=== PATIENT | female | born 1975 | race Caucasian/White ===

== ENCOUNTER 2022-07-04 17:13 | Emergency (ER) | payer OTHER, SELFPAY ==
[2022-07-04 17:29] VITALS: BP 146/98; PULSE 130; RESP 18; TEMP 38.2; O2SAT 100
--- NOTE | 2022-07-04 17:29 | ED.URI ---
HPI - URI/Sore Throat General Chief Complaint: Upper Respiratory Infection Stated Complaint: sinus pressure/drainage; ear pain Time Seen by Provider: 07/04/22 17:38 Source: patient Mode of arrival: ambulatory Limitations: no limitations History of Present Illness HPI Narrative: 46-year-old female presents with complaint of sinus congestion for over a week. Reports pressure, nasal congestion bilateral ear pain. Today began having clear drainage from bilateral eyes and fever. Taking Mucinex, Sudafed, Flonase. reports coughing at night. Denies nausea vomiting diarrhea. No chest pain or shortness of breath. All systems reviewed and negative except as noted above. Related Data Allergies Allergy/AdvReac Type Severity Reaction Status Date / Time codeine Allergy Unknown Other Verified 07/04/22 17:29 Review of Systems Review of Systems: CONSTITUTIONAL: reports fever, chills, or sweats. EYES: Denies visual changes, redness, or discharge. ENT: Report rhinorrhea, congestion, sore throat, or otalgia. CARDIOVASCULAR: Denies chest pain, palpitations, or edema. RESPIRATORY: reports cough. Denies dyspnea. GASTROINTESTINAL: Denies abdominal pain, nausea, vomiting, or diarrhea. GENITOURINARY: Denies dysuria or hematuria. SKIN: Denies rash or itching. MUSCULOSKELETAL: Denies back pain, joint pain, or myalgia. NEUROLOGIC: Denies headache, numbness, or weakness. PSYCHIATRIC: Denies anxiety or depression. All other systems reviewed are negative, except as documented in HPI. PMFSH Comments At time of signature, agree with nursing past medical, surgical, social and family history. There is no relevant family history pertinent to the presenting complaint. Exam Narrative: GENERAL: This is a well-nourished, well-developed patient, in no apparent distress. HEAD: normocephalic, atraumatic. EYES: PERRL. Sclera clear/white. Vision is grossly intact. Clear drainage from both eyes without erythema. EARS: External ears normal, auditory canals clear and without drainage, fluid to bilateral TMs, retracted, dull light reflex. NOSE: External nose normal with erythema to both nares with moderate congestion, bilateral sinus tenderness maxillary and frontal. THROAT: Mucous membranes moist, posterior pharynx clear. NECK: Neck supple, non-tender without lymphadenopathy, masses or thyromegaly. CARDIOVASCULAR: Regular rate and rhythm without murmurs, gallops, or rubs. RESPIRATORY: Clear to auscultation. Breath sounds equal bilaterally. No wheezes, rales, or rhonchi. SKIN: warm, Dry, intact with no suspicious lesions or rash, good texture and turgor. NEURO: awake, alert, and oriented to person, place and time. There were no obvious focal neurologic abnormalities. EXTREMITIES: No joint tenderness, effusion, or edema noted. Course Course Level of Care: Express Care Visit Vital Signs Vital signs: Vital Signs Temperature 38.2 C H 07/04/22 17:29 Pulse Rate 130 H 07/04/22 17:29 Respiratory Rate 18 07/04/22 17:29 Blood Pressure 146/98 H 07/04/22 17:29 Pulse Oximetry 100 07/04/22 17:29 Oxygen Delivery Room Air 07/04/22 17:29 Temperature 38.2 C H 07/04/22 17:30 Pulse Rate 130 H 07/04/22 17:30 Respiratory Rate 18 07/04/22 17:30 Blood Pressure 146/98 H 07/04/22 17:30 Pulse Oximetry 100 07/04/22 17:30 Oxygen Delivery Room Air 07/04/22 17:30 Reviewed MDM - URI/Sore Throat MDM Narrative Medical decision making narrative: Patient is aware of diagnosis, understands and agrees to treatment plan. Anticipatory guidance given. Patient agrees to follow-up as directed and is aware of reasons to seek care at the emergency department. Portions of this record may have been created with voice recognition software Discharge Plan Discharge Clinical Impression: Acute bacterial sinusitis Patient Disposition: Home, Self-Care Condition: Stable Instructions: Antibiotic Form, Sinusitis (ED) Additional Instruc
[2022-07-04 17:30] VITALS: BP 146/98; PULSE 130; RESP 18; TEMP 38.2; O2SAT 100
== END 2022-07-04 18:12 | disposition home or self-care (01) ==
PROVIDERS: Emergency Provider Nurse Practitioner Family
DX: J01.90 Acute sinusitis, unspecified (principal)
CPT/HCPCS: 99213; G0463

== ENCOUNTER 2022-11-20 16:22 | Outpatient (CLI) | payer OTHER, SELFPAY ==
--- NOTE | ~2022-11-20 | MM_ITS ---
EXAMINATION: MM screening glen BI w jadon HISTORY: Screening mammogram TECHNIQUE: Craniocaudal and mediolateral oblique 3-D tomosynthesis images were obtained and synthetic 2-D images were generated. CAD analysis was submitted and interpreted. COMPARISON: 05/31/2017 bilateral diagnostic mammogram 2016 bilateral screening mammogram BREAST PARENCHYMAL COMPOSITION: There are scattered areas of fibroglandular density. FINDINGS: There is no evidence of suspicious mass, calcification, or architectural distortion to sugg est malignancy in either breast. There has been no suspicious interval change. IMPRESSION: 1. No mammographic evidence of malignancy. 2. Recommend routine screening mammography in one year. BI-RADS Category 1: Negative Reviewed, dictated and finalized at location A.
== END 2022-11-20 16:23 | disposition home or self-care (01) ==
PROVIDERS: PCP Family Medicine; Visit Provider Physician Assistant Medical
DX: Z12.31 Encounter for screening mammogram for malignant neoplasm of breast (principal)
CPT/HCPCS: 77063; 77067

== ENCOUNTER 2023-07-11 09:26 | Emergency (ER) | payer OTHER, SELFPAY ==
--- NOTE | 2023-07-11 09:29 | ED.URI ---
HPI - URI/Sore Throat General Chief Complaint: Upper Respiratory Infection Stated Complaint: Sore Throat,Bilateral Ear Irritation Time Seen by Provider: 07/11/23 09:29 Source: patient Mode of arrival: ambulatory Limitations: no limitations History of Present Illness HPI Narrative: Lin is a 47-year-old female patient presenting to the clinic today with complaints of sore throat, itchy watery eyes, cough, nasal congestion, and bilateral ear pain x4 days. She reports no fever or chills. Denies any shortness of breath or chest pain. No known exposure to anyone with COVID, flu, or strep. Just brought in a [employer] prior to symptoms onset. MD elicited complaint: cough, sore throat, nasal congestion and other (Itchy watery eyes) Related Data Allergies Allergy/AdvReac Type Severity Reaction Status Date / Time codeine AdvReac Unknown Gastrointestinal Verified 09/14/22 10:09 Upset sumatriptan [From Imitrex] AdvReac Upper Verified 09/14/22 10:46 extremity heaviness/paresthesia Review of Systems Review of Systems: Pertinent positives per HPI. Patient denies any fever, chills, rash, headache, visual changes, dizziness, shortness of breath, chest pain, palpitations, nausea, vomiting, diarrhea, constipation, abdominal pain, or any urinary issues. [facility] Past Medical History Medical History Anxiety Hx of migraines Surgical History Surgical History Delivery by section Hx of cholecystectomy Family History Family History Father Lung cancer Mother Diabetes mellitus Hypertension Social History Social History Smoking status: Never smoker Alcohol intake: current Drinks per week: 4 Substance use: never Substance use type: does not use Lack of Transportation: No Lack of Food: Never True Current Housing: I Have Housing Concerned About Future Housing: No Difficulty Paying Gas/Electric Bills: No Difficulty Paying for Meds: No Currently Unemployed: No Difficulty w/ Childcare or Family Care: No Living arrangements: with family Occupation/Education: occupation Gender identity (if verbalized by the patient): Female Comments At the time of my signature, I reviewed and agree with the nursing past medical, surgical, social, and family history. There is no relevant family history pertinent to the patient complaint. Exam Narrative: General: Well-developed, well nourished, in no apparent distress Head: Normocephalic, atraumatic Eyes: Pupils equally round and reactive to light bilaterally, EOM intact, sclera and conjunctive clear, no discharge, lids normal Ears: TMs intact and clear, ear canals clear, no drainage, grossly hearing normal. Nose: Nares patent, clear nasal discharge, no inflammation, no sinus tenderness. Mouth: Oral pharynx red without lesions or masses, good dentition, MMM. Postnasal drip Neck: Supple, trachea midline, no enlargement of anterior or posterior cervical nodes, no thyroid masses or goiter palpable. Cardio: Regular rate and rhythm, s1 and s2 normal, no murmur appreciated. Resp: Clear to auscultation bilaterally, no rhonchi, rales, wheezing or rubs Course Course Emergency Course: Portions of this record may have been created with voice recognition software. Level of Care: Express Care Visit Vital Signs Vital signs: Vital signs reviewed MDM - URI/Sore Throat MDM Narrative Medical decision making narrative: At the time of visit patient is resting comfortably on exam table. Strep screen was obtained Differential Diagnosis Differential diagnosis: Likely upper respiratory infection, otitis media, sinusitis, viral infection, bronchitis, influenza, pharyngitis and other (COVID) Discharge Plan Dischar
[2023-07-11 09:36] VITALS: BP 146/88; PULSE 122; RESP 18; TEMP 36.2; O2SAT 100
== END 2023-07-11 09:57 | disposition home or self-care (01) ==
PROVIDERS: Emergency Provider Nurse Practitioner Family; PCP Family Medicine
DX: R09.82 Postnasal drip (principal); J06.9 Acute upper respiratory infection, unspecified; J02.9 Acute pharyngitis, unspecified; H69.93 Unspecified Eustachian tube disorder, bilateral
CPT/HCPCS: 87081; 87880; 99213; G0463

== ENCOUNTER 2023-12-06 08:11 | Outpatient (CLI) | payer OTHER, SELFPAY ==
--- NOTE | ~2023-12-06 | MM_ITS ---
EXAMINATION: MM screening glen BI w jadon HISTORY: Screening mammogram TECHNIQUE: Craniocaudal and mediolateral oblique 3-D tomosynthesis images were obtained and synthetic 2-D images were generated. CAD analysis was submitted and interpreted. COMPARISON: November 20, 2022 bilateral standing mammogram 06/04/2017 diagnostic bilateral mammogram 05/24/2017 bilateral screening mammogram BREAST PARENCHYMAL COMPOSITION: There are scattered areas of fibroglandular density. FINDINGS: There is no evidence of suspicious mass, calcification, or architectural distortion to sugg est malignancy in either breast. There has been no suspicious interval change. IMPRESSION: 1. No mammographic evidence of malignancy. 2. Recommend routine screening mammography in one year. BI-RADS Category 1: Negative Reviewed, dictated and finalized at location A.
== END 2023-12-06 08:12 | disposition home or self-care (01) ==
LOC: ANHIMG 08:16
PROVIDERS: PCP Family Medicine; Visit Provider Obstetrics & Gynecology
DX: Z12.31 Encounter for screening mammogram for malignant neoplasm of breast (principal)
CPT/HCPCS: 77063; 77067

== ENCOUNTER 2025-02-15 07:34 | Outpatient (CLI) | payer OTHER, SELFPAY ==
--- NOTE | ~2025-02-15 | MM_ITS ---
EXAMINATION: MM screening glen BI w jadon HISTORY: Screening TECHNIQUE: Craniocaudal and mediolateral oblique 3-D tomosynthesis images were obtained and synthetic 2-D images were generated. CAD analysis was submitted and interpreted. COMPARISON: Comparison to multiple prior studies sequentially, with oldest reviewed study dated 05/12. BREAST PARENCHYMAL COMPOSITION: Not dense: There are scattered areas of fibroglandular density. FINDINGS: There is no evidence of suspicious mass, calcification, or architectural distortion to sugg est malignancy in either breast. There has been no suspicious interval change. IMPRESSION: 1. No mammographic evidence of malignancy. 2. Recommend routine screening mammography in one year. BI-RADS Category 1: Negative Reviewed, dictated and finalized at location A.
--- OUTSIDE RECORDS SUMMARY | 2025-02-15 07:37 | XMS_ITS | Clinical Summary ---
Author Organization [facility] Address [address] [place] [address] Care Team Providers Care Correctional Maintenance Technician Name Role Phone Vinh Rubi MD Primary Care Provider [phone] Social History Tobacco Use Types Packs/Day Years Used Date Smoking Tobacco: Never Assessed Comments Unknown Sex and Gender Information Value Date Recorded Sex Assigned at Not on file Legal Sex Female 4:39 PM CDT Gender Identity Not on file Sexual Orientation Not on file Last Filed Vital Signs Vital Sign Reading Time Taken Comments Blood Pressure 110/78 06/01/2012 1:23 PM CDT Pulse 88 06/01/2012 1:23 PM CDT Temperature - - Respiratory Rate - - Oxygen Saturation - - Inhaled Oxygen Concentration - - Weight 63.5 kg (140 lb) 06/01/2012 1:23 PM CDT Height - - Body Mass Index - - Plan of Treatment Health Maintenance Due Date Last Done Comments Cervical Cancer Screening Pa p Smear (Age 30 to 64) Every 3 Years 1976 Colorectal Cancer Screening Colonoscopy (10 Years) 1976 Annual Physical 1979 Hepatitis C 1994 DTaP, Tdap and Td Vaccines ( 1 - Tdap) 1995 Hepatitis B Vaccines (1 of 3 - 19+ 3-dose series) 1995 Cervical Cancer Screening Pa p with HPV Testing (Age 30 to 64) Every 5 Years 2006 Cervical Cancer Screening with HPV 2006 Mammogram Screening 2016 COVID-19 Vaccine (2023-2 5 season) 2024 Meningococcal B Vaccine Aged Out No l onger eligible based on patient's age to complete this topic Meningococcal Vaccine Aged Out No isma arthur eligible based on patient's age to complete this topic Pneumococcal Vaccine: Pediat rics (0 to 5 Years) and At-Risk Patients (6 to 49 Years) Aged Out No longer eligible b ased on patient's age to complete this topic RSV Immunizations Under 20 Months Aged Out No longer eligible based on patient's age to complete this topic Insurance Care Teams Correctional Maintenance Technician Relationship Specialty Start Date End Date Vinh Rubi MD [address] [place] [address] [phone] PCP - General INTERNAL MEDICINE 04/20/21
--- OUTSIDE RECORDS SUMMARY | 2025-02-15 07:37 | XMS_ITS | Clinical Summary ---
Author Organization [facility] Address [address] [place] [address] Care Team Providers Care Master Carpenter Name Role Phone Vinh Rubi MD Primary Care Provider [phone] Allergies Active Allergy Reactions Criticality Noted Date Comments Codeine Nausea & Vomiting Low Medications multivitamin capsuleIndicati ons:Vitamin Deficiency Prevention Take 1 capsule by mouth every morning Active ibuprofen (ibuprofen) 200 mg tab/cap Take 400 mg by mouth every 8 (eight) hours as needed for pain or headaches Active fluticasone propionate (FLONASE) 50 mcg/actuation nasal spray Administer 1 spray into each nostril daily as needed for rhinitis Active Active Problems Problem Noted Date Diagnosed Date Carpal tunnel syndrome of left wrist 12/07/2019 Laryngeal spasm 08/15/2016 Vocal cord dysfunction 08/15/2016 Abnormal findings on diagnostic imaging of lung 07/10/2016 Cough 03/14/2016 Calculus of gallbladder with cholecystitis 06/01 Overview (11/16/2016): Calculus of gallbladder with cholecystitis Surgical History Surgery Date Site/Laterality Comments CHOLECYSTECTOMY SECTION Family History Medical History Relation Name Comments Hypertension Father Family history of hypertension - (Added by TW Conv) Lung cancer Father Family history of lung cancer - (Added by TW Conv) Hypertension Mother Family history of hypertension - (Added by TW Conv) Relation Name Status Comments Father Mother Social History Tobacco Use Types Packs/Day Years Used Date Smoking Tobacco: Never Smokeless Tobacco: Never Alcohol Use Standard Drinks/Week Comments Yes 2 (1 standard drink = 0.6 oz pur e alcohol) Personal Safety Answer Date Recorded Getting School Help Needed Not on file 10/26 Comments Unknown Sex and Gender Information Value Date Recorded Sex Assigned at Not on file Legal Sex Female 3:51 AM RESPIRATORY PHYSICIAN Gender Identity Not on file Sexual Orientation Not on file Obstetrics History Last Filed Vital Signs Vital Sign Reading Time Taken Comments Blood Pressure 123/84 08/15/2016 9:27 AM RESPIRATORY PHYSICIAN Pulse 88 08/15/2016 9:27 AM RESPIRATORY PHYSICIAN Temperature - - Respiratory Rate - - Oxygen Saturation 100% 07/10/2016 2:20 PM RESPIRATORY PHYSICIAN Inhaled Oxygen Concentration - - Weight 72.6 kg (160 lb) 04/04/2020 5:10 PM CDT Height 157.5 cm (5' 2) 04/04/2020 5:10 PM CDT Body Mass Index 29.26 04/04/2020 5:10 PM CDT Plan of Treatment Not on file Insurance [facility] H[facility]/PPO Address: [facility] [address] [place] [address] [facility]/[place]: [place] [address] Care Teams Master Carpenter Relationship Specialty Start Date End Date Vinh Rubi MD [address] [place] [id number] PCP - General 07/12/15
--- OUTSIDE RECORDS SUMMARY | 2025-02-15 07:37 | XMS_ITS | Referral Summary ---
Author Organization [facility] Address [address] [place] [address] Care Team Providers Care Employment Security Officer Name Role Phone Vinh Rubi MD Primary Care Provider [phone] Allergies Active Allergy Reactions Criticality Noted Date [...] Overview (11/16/2016): Calculus of gallbladder with cholecystitis Social History Tobacco Use Types Packs/Day Years [...] on file Legal Sex Female 3:51 AM AIRCRAFT PAINTER APPRENTICE Gender Identity Not on file Sexual Orientation Not on file Last Filed Vital Signs Vital Sign Reading Time Taken Comments Blood Pressure 123/84 08/15/2016 9:27 AM AIRCRAFT PAINTER APPRENTICE Pulse 88 08/15/2016 9:27 AM AIRCRAFT PAINTER APPRENTICE Temperature - - Respiratory Rate - - Oxygen Saturation 100% 07/10/2016 2:20 PM AIRCRAFT PAINTER APPRENTICE Inhaled Oxygen Concentration - - Weight 72.6 kg (160 lb) 04/04/2020 5:10 PM CDT Height 157.5 cm (5' 2) 04/04/2020 5:10 PM CDT Body Mass Index 29.26 04/04/2020 5:10 PM CDT Plan of Treatment Not on file Insurance [facility]/PP[facility] Address: [id number] [place] [address] [facility] Address: [facility] [address] [place] [address] [id number] [phone] Care Teams Employment Security Officer Relationship Specialty Start Date End Date Vinh Rubi MD [address] [place] [id number] PCP - General 07/12/15
== END 2025-02-15 07:35 | disposition home or self-care (01) ==
LOC: ANHIMG 07:35
PROVIDERS: PCP Physician Assistant Medical; Visit Provider Physician Assistant Medical
DX: Z12.31 Encounter for screening mammogram for malignant neoplasm of breast (principal)
CPT/HCPCS: 77063; 77067